=== PATIENT | female | born 1955 | race Caucasian/White ===

== ENCOUNTER 2024-06-19 13:22 | Observation (INO) | payer OTHER, MEDICARE ==
[2024-06-19 14:48] LABS: BASOPHILS ABSOLUTE AUTO 0.03 K/uL (0.00-0.10); BASOPHILS PERCENT AUTO 0.3 % (0.1-1.3); EOSINOPHILS ABSOLUTE AUTO 0.09 K/uL (0.00-0.40); HEMATOCRIT 38.6 % (34.3-46.0); HEMOGLOBIN 13.1 g/dL (11.2-15.5); IMMATURE GRAN ABSOLUTE AUTO 0.18 K/uL (0.00-0.23); IMMATURE GRAN PERCENT AUTO 2.1 % (0.0-0.7); LYMPHOCYTES ABSOLUTE AUTO 0.65 K/uL (0.8-3.3); LYMPHOCYTES PERCENT AUTO 7.5 % (11.4-47.7); MEAN CORPUSCULAR HEMOGLOBIN 29.7 pg (31.6-35.5); MEAN CORPUSCULAR HGB CONC 33.9 g/dL (31.6-35.5); MEAN CORPUSCULAR VOLUME 87.5 fL (81.4-99.0); MONOCYTES ABSOLUTE AUTO 0.62 K/uL (0.20-0.90); MONOCYTES PERCENT AUTO 7.1 % (3.3-12.6); NEUTROPHILS ABSOLUTE AUTO 7.15 K/uL (1.0-7.6); PLATELET COUNT,PLT 203 K/uL (130-375); RED BLOOD CELL COUNT 4.41 M/uL (3.77-5.24); WHITE BLOOD CELL COUNT,WBC 8.7 K/uL (3.2-11.0)
[2024-06-19 15:13] LABS: A/G RATIO 1.4 (1.2-2.2); ALANINE AMINOTRANSFERASE,ALT 36 U/L (12-78); ALBUMIN 4.4 g/dL (3.4-5.0); ALKALINE PHOSPHATASE 55 U/L (46-116); ANION GAP 7.2 mmol/L (5.0-14.0); ASPARTATE AMNIOTRANSFERASE,AST 35 U/L (15-37); BILIRUBIN TOTAL 0.6 mg/dL (0.2-1.0); BLOOD UREA NITROGEN,BUN 16 mg/dL (7-18); CALCIUM 9.4 mg/dL (8.5-10.1); CARBON DIOXIDE,CO2 32 mmol/L (21-32); CHLORIDE,CL 101 mmol/L (100-108); CREATININE 0.7 mg/dL (0.6-1.0); EST CRCL DRUG DOSING (CG) 63.66 mL/min; ESTIMATED GFR 95 mL/min (>60); GLUCOSE RANDOM 91 mg/dL (74-106); POTASSIUM,K 3.9 mmol/L (3.6-5.2); PROTEIN TOTAL,TP 7.5 g/dL (6.4-8.2); SODIUM,NA 140 mmol/L (140-148)
[2024-06-19 15:15] LABS: TROPONIN I HIGH SENSITIVITY 150.2 pg/mL (<=60.3)
[2024-06-19] MEDS: Ibuprofen 400 MG Tab PO ONE (19:19)
[2024-06-19] MEDS: Methocarbamol 500 MG Tab PO ONE (19:20)
[2024-06-19] MEDS: Acetaminophen 500 MG Tab PO ONE (19:20)
[2024-06-19] MEDS ORDERED: Acetaminophen 325 MG Tab PO PRN (20:58)
[2024-06-19] MEDS ORDERED: Sennosides/Docusate Sodium 50-8.6 MG Tab PO PRN (20:58)
[2024-06-19] MEDS ORDERED: Ondansetron 4 MG Tab.DIS PO PRN (20:58)
[2024-06-19] MEDS ORDERED: oxyCODONE 5 MG Tab PO PRN (20:58)
[2024-06-19] MEDS ORDERED: Ondansetron 4 MG/2 ML SDV IV PRN (20:58)
[2024-06-19] MEDS: Melatonin 3 MG Tab PO PRN (21:47)
[2024-06-19] MEDS: Melatonin 3 MG Tab ONE (21:50)
[2024-06-19] MEDS ORDERED: Methocarbamol 500 MG Tab PO PRN (22:42)
[2024-06-20] MEDS: Ibuprofen 600 MG Tab PO PRN (01:00)
[2024-06-20 05:56] LABS: HEMATOCRIT 34.6 % (34.3-46.0); HEMOGLOBIN 11.9 g/dL (11.2-15.5); MEAN CORPUSCULAR HGB CONC 34.4 g/dL (31.6-35.5); MEAN CORPUSCULAR VOLUME 87.2 fL (81.4-99.0); RED BLOOD CELL COUNT 3.97 M/uL (3.77-5.24); WHITE BLOOD CELL COUNT,WBC 4.7 K/uL (3.2-11.0)
[2024-06-20] MEDS: Sodium Chloride 0.9% 1,000 ML IV ONE (06:02)
[2024-06-20 06:27] LABS: A/G RATIO 1.3 (1.2-2.2); ALANINE AMINOTRANSFERASE,ALT 30 U/L (12-78); ALBUMIN 3.7 g/dL (3.4-5.0); ALKALINE PHOSPHATASE 48 U/L (46-116); ANION GAP 7.6 mmol/L (5.0-14.0); ASPARTATE AMNIOTRANSFERASE,AST 27 U/L (15-37); BILIRUBIN TOTAL 0.8 mg/dL (0.2-1.0); BLOOD UREA NITROGEN,BUN 23 mg/dL (7-18); CALCIUM 8.6 mg/dL (8.5-10.1); CARBON DIOXIDE,CO2 31 mmol/L (21-32); CHLORIDE,CL 103 mmol/L (100-108); CREATININE 0.8 mg/dL (0.6-1.0); EST CRCL DRUG DOSING (CG) 57.95 mL/min; ESTIMATED GFR 81 mL/min (>60); GLUCOSE RANDOM 85 mg/dL (74-106); PROTEIN TOTAL,TP 6.5 g/dL (6.4-8.2); SODIUM,NA 142 mmol/L (140-148)
[2024-06-20 07:06] VITALS: BP 98/62; PULSE 64
== END 2024-06-20 07:50 ==
LOC: JP.ED 13:22 → JP.ICU 20:41
PROVIDERS: ADMIT Registered Nurse; ATTEND Hospitalist
DX: S22.22XA Fracture of body of sternum, initial encounter for closed fracture (principal); V47.5XXA Car driver injured in collision with fixed or stationary object in traffic accident, initial encounter
CPT/HCPCS: 36415; 71250; 74176; 80053; 84484; 85025; 85027; 93005; 99285; A9270; J7030; G0378

== ENCOUNTER 2024-08-23 06:27 | Day surgery (SDC) | payer MEDICARE, BC ==
[2024-08-23] MEDS ORDERED: Propofol 200 MG/20 ML SDV ONE (07:11)
[2024-08-23] MEDS ORDERED: fentaNYL 100 MCG/2 ML SDV ONE (07:12)
[2024-08-23] MEDS: Lactated Ringers 1,000 ML IV SCH (07:12)
[2024-08-23 09:26] VITALS: BP 124/72; PULSE 68
== END 2024-08-23 09:28 | disposition home or self-care (01) ==
LOC: JP.SDS 06:27
PROVIDERS: ATTEND Family Medicine
DX: Z12.11 Encounter for screening for malignant neoplasm of colon (principal); D12.5 Benign neoplasm of sigmoid colon; K63.5 Polyp of colon; Z86.0101 Personal history of adenomatous and serrated colon polyps; Z80.0 Family history of malignant neoplasm of digestive organs; E78.5 Hyperlipidemia, unspecified
CPT/HCPCS: 00811-QZ; 45380; 45385; 88305; J2704; J3010; J7120